=== PATIENT | female | born 1945 | race Two or more races ===

== ENCOUNTER 2019-08-10 11:46 | Emergency (ER) | payer OTHER ==
[~2019-08-10] VITALS: Ht 152.4 cm; Wt 76.2 kg
[~2019-08-10 11:46] MED LIST: ANTIVERT PO; ASA81 MG PO; COZAAR100 MG PO; NABUMETONE500 MG PO; PERCOCET 5/3251 TAB PO; SYNTHROID75 MCG PO
[2019-08-10] MEDS ORDERED: ELIQUIS5 MG (12:17)
[2019-08-10] MEDS ORDERED: TOPROL XL100 M1 (12:18)
[2019-08-10] MEDS ORDERED: SYNTHROID75 MCG (12:18)
[2019-08-10] MEDS ORDERED: ANTIVERT (12:18)
[2019-08-10] MEDS ORDERED: CIPRO500 MG PO (15:22)
== END 2019-08-10 17:38 | disposition home or self-care (01) ==
LOC: ER 11:46
DX: R31.0 Gross hematuria (principal); R30.0 Dysuria; N39.0 Urinary tract infection, site not specified

== ENCOUNTER 2024-09-15 19:38 | Emergency (ER) | payer OTHER ==
[~2024-09-15] VITALS: Ht 152.4 cm; Wt 76.2 kg
[~2024-09-15 19:38] MED LIST changes: +ANTIVERT; +CIPRO500 MG PO; +ELIQUIS5 MG; +SYNTHROID75 MCG; +TOPROL XL100 M1
[2024-09-15 21:47] LABS: BASO % 0.3 % (0.1-1.2); EOS # 0.17 (0.04-0.54); EOS % 1.9 % (0.7-7.0); HEMATOCRIT 44.4 % (34.1-44.9); HEMOGLOBIN 14.7 g/dL (11.2-15.7); LYMPH # 1.78 (1.18-3.74); LYMPH % 19.6 % (19.3-53.1); MEAN CORPUSCULAR HEMOGLOBIN 30.1 pg (25.6-32.2); MONO # 0.76 (0.24-0.82); MONO % 8.4 % (4.7-12.5); NEUT # 6.33 (1.56-6.13); NEUT % 69.7 % (34.0-71.1); PLATELET COUNT 318 K/uL (163-369); RED BLOOD COUNT 4.89 M/uL (3.93-5.22); RED CELL DISTRIBUTION WIDTH 12.4 % (11.6-14.4)
[2024-09-15 22:02] LABS: INFLUENZA A AG NEGATIVE (NEGATIVE); INFLUENZA B AG NEGATIVE (NEGATIVE)
[2024-09-15 22:08] LABS: ALBUMIN 3.7 gm/dL (3.4-5.0); BILIRUBIN TOTAL 0.54 mg/dL (0.3-1.2); CALCIUM 10.2 mg/dL (8.5-10.1); CREATININE SERUM 0.94 mg/dL (0.55-1.02); GFR 57.29; GLOBULINA 3.9 G/DL (2.4-3.5); POTASSIUM 4.96 mEq/L (3.5-5.1); TOTAL PROTEIN 7.6 gm/dL (6.4-8.2)
[2024-09-16 00:22] LABS: COVID-19 AG NEGATIVE (NEGATIVE)
== END 2024-09-16 01:23 | disposition home or self-care (01) ==
LOC: ER 19:57
PROVIDERS: Preventive Medicine Public Health & General Preventive Medicine
DX: R07.89 Other chest pain (principal); R53.83 Other fatigue; Z20.822 Contact with and (suspected) exposure to COVID-19; I10 Essential (primary) hypertension; E03.8 Other specified hypothyroidism; Z88.8 Allergy status to other drugs, medicaments and biological substances